=== PATIENT | male | born 1990 | race Native Hawaiian/Other Pacific Islander ===

== ENCOUNTER 2016-05-21 05:17 | Emergency (ER) | payer OTHER ==
[~2016-05-21] VITALS: Ht 182.9 cm; Wt 99.8 kg
[2016-05-21 06:41] LABS: PLATELET COUNT 219 K/uL (142-355)
== END 2016-05-21 07:13 | disposition home or self-care (01) ==
LOC: ED 05:17
PROVIDERS: Family Medicine
DX: M25.562 Pain in left knee (principal); M25.462 Effusion, left knee
CPT/HCPCS: 84550; 85027; 96372; 99283; J1885; J2930

== ENCOUNTER 2018-01-02 17:02 | Emergency (ER) | payer OTHER ==
[~2018-01-02] VITALS: Ht 182.9 cm; Wt 108.9 kg
[2018-01-02 17:46] LABS: PLATELET COUNT 225 K/uL (142-355)
[2018-01-02 17:55] LABS: POTASSIUM 3.8 mmol/L (3.6-5.2)
[2018-01-02 19:45] VITALS: BP 1128/70; TEMP 97
== END 2018-01-02 19:46 | disposition home or self-care (01) ==
LOC: ED 17:02
DX: M10.9 Gout, unspecified (principal); M25.461 Effusion, right knee
CPT/HCPCS: 36415; 80053; 81000; 84550; 85027; 96372; 99283; J1885